=== PATIENT | male | born 1980 | race Two or more races ===

== ENCOUNTER → 2016-09-11 | Outpatient (CLI) | payer OTHER | LOC: EDSTATUS 09:47 → FIMAGING 11:07 | PROVIDERS: ATTEND Physician Assistant Surgical | DX: Z98.1 Arthrodesis status (principal) ==

== ENCOUNTER 2018-07-14 09:29 | Day surgery (SDC) | payer OTHER ==
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
[2018-07-14] MEDS ORDERED: ceFAZolin 2 GM/DEXTROSE 100 ML IV ONE (09:43)
[2018-07-14] MEDS ORDERED: PREGABALIN 150 MG CAP PO ONE (09:43)
[2018-07-14] MEDS ORDERED: LIDOCAINE 1% 2 ML INJ ID PRN (09:47)
[2018-07-14] MEDS ORDERED: LR 1,000 ML IV ONE (09:47)
[2018-07-14] MEDS ORDERED: MIDAZOLAM 2 MG/2 ML VIAL IVP ONE (10:08)
--- NOTE | 2018-07-14 10:08 | PDANEPAE ---
ANE History of Present Illness L hip arthroscopy femoroplasty ANE Past Medical History - Cardiovascular History Hx Hypertension: Yes Hx Arrhythmias: No Hx Chest Pain: No Hx Coronary Artery / Peripheral Vascular Disease: No Hx CHF / Valvular Disease: No Hx Palpitations: No - Pulmonary History Hx COPD: No Hx Asthma/Reactive Airway Disease: No Hx Recent Upper Respiratory Infection: No Hx Oxygen in Use at Home: No Hx Sleep Apnea: Yes Sleep Apnea Screening Result - Last Documented: Positive Pulmonary History Comment: JACOB- NO CPAP - Neurologic History Hx Cerebrovascular Accident: No Hx Seizures: No Hx Dementia: No Neurologic History Comment: NUMBNESS, WEAKNESS LE - Endocrine History Hx Diabetes: No - Renal History Hx Renal Disorders: No - Liver History Hx Hepatic Disorders: Yes Hepatic History Comment: FATTY LIVER - Neurological & Psychiatric Hx Hx Neurological and Psychiatric Disorders: Yes Neurological / Psychiatric History Comment: NUMBNESS/TINGLING lOWER EXTREMETIES ON LEFT - Cancer History Hx Cancer: No - Congenital Disorder History Hx Congenital Disorders: No - GI History Hx Gastrointestinal Disorders: Yes Gastrointestinal History Comment: ACID REFLUX - Other Health History Other Health History: LOW BACK PAIN. DRY SKIN - Chronic Pain History Chronic Pain: Yes (BACK, LEGS) - Surgical History Prior Surgeries: LUMBAR FUSION 08/2013. CHOLECYSTECTOMY. SI joint sx. L3-S1 ANE Review of Systems Review of systems is: negative Review of Systems: - Exercise capacity METS (RN): 2 METS ANE Patient History - Allergies Allergies/Adverse Reactions: acetaminophen [From Tylenol] Allergy (Verified 10/16/15 09:39) Other-Enter Comments - Home Medications Home medications: home medication list seen and reviewed Home Medications: Advil 07/13/18 [Last Taken 07/07/18] Aleve 07/13/18 [Last Taken 07/07/18] Celebrex 07/13/18 [Last Taken 07/13/18] Lisinopril 07/13/18 [Last Taken 07/13/18] Lyrica 07/13/18 [Last Taken 07/13/18] Omeprazole 07/13/18 [Last Taken 07/13/18] Testosterone 07/13/18 [Last Taken 06/17/18] Tizanidine HCl 07/13/18 [Last Taken 07/13/18] oxyCODONE IR [Oxycodone Ir (*)] 07/13/18 [Last Taken 07/14/18 05:00] - NPO status NPO Since - Liquids (Date): 07/14/18 NPO Since - Liquids (Time): 08:00 NPO Since - Solids (Date): 07/13/18 - Anes Hx Hx Anesthesia Complications (with details): sore throat - Smoking Hx Smoking Status: Current some day smoker - Family Anes Hx Family Anes Hx: none Family Hx Anesthesia Complications: none ANE Labs/Vital Signs - Vital Signs Vital Signs: reviewed preoperatively; see RN documention for details Height: 172.72 cm Weight: 110.677 kg ANE Physical Exam - Airway Neck exam: FROM, increased neck circumference, short neck Mallampati Score: Class 2 Mouth exam: normal dental/mouth exam - Pulmonary Pulmonary: no respiratory distress - Cardiovascular Cardiovascular: regular rate and rhythym - ASA Status ASA Status: III ANE Anesthesia Plan Anesthesia Plan: general endotracheal anesthesia
[2018-07-14] MEDS ORDERED: EPINEPHrine 30 MG/30 ML MDV (0.1 MG/0.1 ML) ONE (10:09)
[2018-07-14] MEDS ORDERED: BUPIVACAINE 0.25% 30 ML SDV ONE (10:16)
[2018-07-14] MEDS ORDERED: DEXAMETHASONE 4 MG/ML VIAL ONE (10:31)
[2018-07-14] MEDS ORDERED: LIDOCAINE 2% 100 MG/5 ML SYR ONE (10:31)
[2018-07-14] MEDS ORDERED: PROPOFOL 200 MG/20 ML VIAL ONE ×3 (10:31→14:09)
[2018-07-14] MEDS ORDERED: ROCURONIUM 50 MG/5 ML VIAL ONE ×3 (10:31→12:04)
[2018-07-14] MEDS ORDERED: fentaNYL 250 MCG/5 ML INJ ONE (10:31)
[2018-07-14] MEDS ORDERED: ONDANSETRON 4 MG/2 ML VIAL ONE (10:31)
[2018-07-14] MEDS ORDERED: ONDANSETRON 4 MG/2 ML VIAL IVP PRN (12:36)
[2018-07-14] MEDS ORDERED: fentaNYL 100 MCG/2 ML INJ IVP PRN (12:36)
[2018-07-14] MEDS ORDERED: LABETALOL HCL 5 MG/ML 20 ML MDV IVP PRN (12:36)
[2018-07-14] MEDS ORDERED: MEPERIDINE 25 MG/0.5 ML AMP IVP PRN (12:36)
[2018-07-14] MEDS ORDERED: oxyCODONE IR 5 MG TAB PO PRN (12:36)
[2018-07-14] MEDS ORDERED: PROMETHAZINE HCL 25 MG/ML INJ IVP PRN (12:36)
[2018-07-14] MEDS ORDERED: NALOXONE HCL 0.4 MG/ML INJ IVP PRN (12:36)
[2018-07-14] MEDS ORDERED: DEXAMETHASONE 4 MG/ML VIAL IVP PRN (12:36)
--- NOTE | 2018-07-14 12:38 | POSTANESTH ---
Post Anesthetic Evaluation Cardiovascular Status: Similar to Pre-Op Cond Respiratory Status: Similar to Pre-op Cond. Level of Consciousness/Mental Status: Can Participate in Eval, Mildly Sleepy, Arousable Pain Control: Adequate, Prn Tx Ordered Nausea/Vomiting Control: Adequate, Prn Tx Ordered Complications Possibly Related to Anesthesia: None Noted
[2018-07-14] MEDS ORDERED: hydrALAZINE 20 MG/ML VIAL ONE (13:42)
[2018-07-14] MEDS ORDERED: fentaNYL 100 MCG/2 ML INJ ONE (14:11)
[2018-07-14] MEDS ORDERED: KETOROLAC 30 MG/1 ML SDV ONE (14:17)
[2018-07-14] MEDS ORDERED: SUGAMMADEX SODIUM 200 MG/2 ML VIAL IVP ONE (14:18)
[2018-07-14] MEDS ORDERED: DIAZEPAM 5 MG/ML 1 ML SYR ONE (14:45)
[2018-07-14] MEDS: DIAZEPAM 5 MG/ML 1 ML SYR IVP PRN ×2 (14:47→15:04)
[2018-07-14] MEDS ORDERED: HYDROmorphONE/DILAUDID 2 MG/ML INJ ONE (14:49)
[2018-07-14] MEDS: HYDROmorphONE/DILAUDID 2 MG/ML INJ IVP PRN ×6 (14:51→16:11)
[2018-07-14 16:19] VITALS: BP 131/86
[2018-07-14] MEDS ORDERED: HYDROCODONE/APAP 5/325 TAB ONE (16:39)
--- NOTE | 2018-07-14 16:46 | POSTOPPROG ---
Post Op Note Date of Operation: 07/14/18 Surgeon: Harjinder Koenig Pourer Buggy Ladle: Dr. Kwon Anesthesia: GET(General Endotracheal) Pre-op Diagnosis: RIGHT ALMA DELIA Post-op Diagnosis: RIGHT ALMA DELIA Procedure: Right Hip Arthroscopy Inf/Abcess present in the surg proc area at time of surgery?: No
== END 2018-07-14 17:25 | disposition home or self-care (01) ==
LOC: FSGY 09:29
PROVIDERS: ATTEND Orthopaedic Surgery Sports Medicine
PROC: 0SQ94ZZ Repair Right Hip Joint, Percutaneous Endoscopic Approach (ICD-10-PCS; principal; 2018-07-14 11:00)
DX: M25.851 Other specified joint disorders, right hip (principal); M70.61 Trochanteric bursitis, right hip; Z98.1 Arthrodesis status; M54.5 Low back pain; F32.9 Major depressive disorder, single episode, unspecified; K21.9 Gastro-esophageal reflux disease without esophagitis; G47.33 Obstructive sleep apnea (adult) (pediatric)
CPT/HCPCS: C1713; J0171; J0360; J0690; J1100; J1170; J1885; J2001; J2250; J2405; J2704; J3010; J3360

== ENCOUNTER 2018-07-27 06:16 | Day surgery (SDC) | payer OTHER ==
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
[2018-07-27] MEDS ORDERED: LR 1,000 ML IV ONE (06:34)
[2018-07-27] MEDS ORDERED: SCOPOLAMINE HYDROBROMIDE 1 MG/3 DAYS PATCH TD ONE (06:46)
[2018-07-27] MEDS ORDERED: MIDAZOLAM 2 MG/2 ML VIAL IVP ONE (06:46)
[2018-07-27] MEDS ORDERED: DEXMEDETOMIDINE HCL 400 MCG in NS 100 ML IV SCH (07:00)
[2018-07-27] MEDS ORDERED: IPRATROPIUM/ALBUTEROL 3 ML DEYVIAL IH PRN (07:22)
--- NOTE | 2018-07-27 07:22 | PDANEPAE ---
ANE Past Medical History - Cardiovascular History Hx Hypertension: Yes Hx Arrhythmias: No Hx Chest Pain: No Hx Coronary Artery / Peripheral Vascular Disease: No Hx CHF / Valvular Disease: No Hx Palpitations: No - Pulmonary History Hx COPD: No Hx Asthma/Reactive Airway Disease: No Hx Recent Upper Respiratory Infection: No Hx Oxygen in Use at Home: No Hx Sleep Apnea: Yes Sleep Apnea Screening Result - Last Documented: Positive Pulmonary History Comment: JACOB- NO CPAP - Neurologic History Hx Cerebrovascular Accident: No Hx Seizures: No Hx Dementia: No Neurologic History Comment: NUMBNESS, WEAKNESS LE - Endocrine History Hx Diabetes: No Obesity: yes, moderate - Renal History Hx Renal Disorders: No - Liver History Hx Hepatic Disorders: Yes Hepatic History Comment: FATTY LIVER - Neurological & Psychiatric Hx Hx Neurological and Psychiatric Disorders: Yes Neurological / Psychiatric History Comment: NUMBNESS/TINGLING lOWER EXTREMETIES ON LEFT - Cancer History Hx Cancer: No - Congenital Disorder History Hx Congenital Disorders: No - GI History Hx Gastrointestinal Disorders: Yes Gastrointestinal History Comment: ACID REFLUX - Other Health History Other Health History: LOW BACK PAIN. MACIEJ ARMS DRY SKIN & ITCHING - Chronic Pain History Chronic Pain: Yes (BACK, LEGS) - Surgical History Prior Surgeries: RT HIP SCOPE,FEMOROPLASTY 07/14/18. LUMBAR FUSION 08/2013. CHOLECYSTECTOMY. SI joint sx. L3-S1 ANE Review of Systems Review of Systems: - Exercise capacity METS (RN): 2 METS ANE Patient History - Allergies Allergies/Adverse Reactions: acetaminophen [From Tylenol] Allergy (Verified 10/16/15 09:39) Other-Enter Comments adhesive tape Allergy (Verified 07/27/18 06:50) "kilgore my skin" - Home Medications Home medications: home medication list seen and reviewed Home Medications: Celebrex DAILY AT 2PM 07/13/18 [Last Taken 07/26/18] Lisinopril DAILY 07/13/18 [Last Taken 07/26/18] Omeprazole DAILY 07/13/18 [Last Taken 07/27/18 05:30] Testosterone ONCE 07/13/18 [Last Taken 1 Month Ago ~06/26/18] Tizanidine HCl TID 07/13/18 [Last Taken 07/26/18] oxyCODONE IR [Oxycodone Ir (*)] QID 07/13/18 [Last Taken 07/26/18] Naprosyn BID 07/24/18 [Last Taken 07/26/18] Topical Creme PRN 07/24/18 [Last Taken 07/26/18] - NPO status NPO Status: no food or drink >8 hours NPO Since - Liquids (Date): 07/27/18 NPO Since - Liquids (Time): 05:30 NPO Since - Solids (Date): 07/26/18 NPO Since - Solids (Time): 18:00 - Smoking Hx Smoking Status: Current some day smoker - Family Anes Hx Family Hx Anesthesia Complications: none ANE Labs/Vital Signs - Vital Signs Vital Signs: reviewed preoperatively; see RN documention for details Blood Pressure: 146/99 Heart Rate: 65 Respiratory Rate: 18 O2 Sat (%): 94 Height: 172.72 cm Weight: 110.677 kg ANE Physical Exam - Airway Neck exam: decreased ROM Mallampati Score: Class 4 Mouth exam: normal dental/mouth exam - Pulmonary Pulmonary: clear to auscultation - Cardiovascular Cardiovascular: regular rate and rhythym - ASA Status ASA Status: III ANE Anesthesia Plan Anesthesia Plan: general endotracheal anesthesia (Glidescope to maintain neck stability)
[2018-07-27] MEDS ORDERED: PROPOFOL 200 MG/20 ML VIAL ONE ×2 (07:25→13:28)
[2018-07-27] MEDS ORDERED: BUPIVACAINE 0.25% 30 ML SDV ONE (07:25)
[2018-07-27] MEDS ORDERED: fentaNYL 100 MCG/2 ML INJ ONE ×3 (07:25→14:27)
[2018-07-27] MEDS ORDERED: EPINEPHrine 1 MG/ML INJ ONE (07:26)
[2018-07-27] MEDS ORDERED: METOCLOPRAMIDE 10 MG/2 ML VIAL ONE ×2 (07:28→13:19)
[2018-07-27] MEDS ORDERED: DEXAMETHASONE 4 MG/ML VIAL ONE (07:28)
[2018-07-27] MEDS ORDERED: RANITIDINE 50 MG/2 ML VIAL ONE (07:28)
[2018-07-27] MEDS ORDERED: ROCURONIUM 100 MG/10 ML VIAL ONE (07:28)
[2018-07-27] MEDS ORDERED: fentaNYL 100 MCG/2 ML INJ IVP ONE (07:46)
[2018-07-27] MEDS ORDERED: fentaNYL 100 MCG/2 ML INJ IVP PRN (07:49)
[2018-07-27] MEDS ORDERED: ceFAZolin 2 GM/DEXTROSE 100 ML IV ONE (08:30)
[2018-07-27] MEDS ORDERED: PREGABALIN 150 MG CAP PO ONE (08:30)
[2018-07-27] MEDS ORDERED: ACETAMINOPHEN 500 MG TAB PO ONE (08:30)
[2018-07-27] MEDS ORDERED: GLYCOPYRROLATE 0.2 MG/1 ML VIAL ONE (08:49)
[2018-07-27] MEDS ORDERED: HYDROmorphONE/DILAUDID 2 MG/ML INJ ONE (08:57)
[2018-07-27] MEDS ORDERED: ROCURONIUM 50 MG/5 ML VIAL ONE ×2 (09:19→12:00)
[2018-07-27] MEDS ORDERED: LABETALOL HCL 5 MG/ML 20 ML MDV ONE (09:39)
[2018-07-27] MEDS ORDERED: ceFAZolin 1 GM VIAL ONE ×2 (12:20)
[2018-07-27] MEDS ORDERED: KETOROLAC 30 MG/1 ML SDV ONE (13:16)
[2018-07-27] MEDS ORDERED: ONDANSETRON 4 MG/2 ML VIAL ONE (13:16)
[2018-07-27] MEDS ORDERED: SUGAMMADEX SODIUM 200 MG/2 ML VIAL IVP ONE (13:20)
[2018-07-27] MEDS ORDERED: LABETALOL HCL 5 MG/ML 20 ML MDV IVP PRN (13:25)
[2018-07-27] MEDS ORDERED: ONDANSETRON 4 MG/2 ML VIAL IVP PRN (13:25)
[2018-07-27] MEDS ORDERED: PROMETHAZINE HCL 25 MG/ML INJ IVP PRN (13:25)
[2018-07-27] MEDS ORDERED: NALOXONE HCL 0.4 MG/ML INJ IVP PRN (13:25)
[2018-07-27] MEDS ORDERED: DIAZEPAM 5 MG/ML 1 ML SYR IVP PRN (13:25)
[2018-07-27] MEDS ORDERED: LR 500 ML IV PRN (13:25)
[2018-07-27] MEDS ORDERED: MEPERIDINE 25 MG/0.5 ML AMP IVP PRN (13:25)
[2018-07-27] MEDS ORDERED: ALBUTEROL 3 ML DEYVIAL IH PRN (13:25)
[2018-07-27] MEDS ORDERED: HYDROmorphONE/DILAUDID 2 MG/ML INJ IVP PRN (13:25)
[2018-07-27] MEDS ORDERED: oxyCODONE IR 5 MG TAB PO PRN (13:25)
[2018-07-27] MEDS: fentaNYL 100 MCG/2 ML INJ IVP PRN ×3 (14:29→15:07)
[2018-07-27] MEDS ORDERED: oxyCODONE IR 5 MG TAB ONE (14:54)
[2018-07-27 17:42] VITALS: BP 118/77
--- NOTE | 2018-07-27 18:41 | POSTOPPROG ---
Post Op Note Date of Operation: 07/27/18 Surgeon: Harjinder Koenig Industrial Refrigeration Mechanic: Dr. Kwon Anesthesia: GET(General Endotracheal) Pre-op Diagnosis: LEFT ALMA DELIA Post-op Diagnosis: LEFT ALMA DELIA Procedure: Left Hip Arthroscopy Inf/Abcess present in the surg proc area at time of surgery?: No
[2018-07-28] MEDS ORDERED: PATCH REMOVAL 1 EA PATCH TD SCH (06:46)
--- NOTE | 2018-07-28 06:51 | POSTANESTH ---
Post Anesthetic Evaluation Cardiovascular Status: Normal, Stable Respiratory Status: Normal, Stable Level of Consciousness/Mental Status: Mildly Sleepy, Arousable Pain Control: Adequate, Prn Tx Ordered Nausea/Vomiting Control: Adequate, Prn Tx Ordered Complications Possibly Related to Anesthesia: None Noted
== END 2018-07-27 17:28 | disposition home or self-care (01) ==
LOC: FSGY 06:16
PROVIDERS: ATTEND Orthopaedic Surgery Sports Medicine
PROC: 0SQB4ZZ Repair Left Hip Joint, Percutaneous Endoscopic Approach (ICD-10-PCS; principal; 2018-07-27 08:30)
DX: M24.852 Other specific joint derangements of left hip, not elsewhere classified (principal); M70.62 Trochanteric bursitis, left hip; M54.5 Low back pain; Z98.1 Arthrodesis status; Z87.81 Personal history of (healed) traumatic fracture; F32.9 Major depressive disorder, single episode, unspecified; K21.9 Gastro-esophageal reflux disease without esophagitis; G47.33 Obstructive sleep apnea (adult) (pediatric)
CPT/HCPCS: C1713; J0171; J0690; J1100; J1170; J1885; J2250; J2405; J2704; J2765; J2780; J3010